=== PATIENT | female | born 1990 | race Caucasian/White ===

== ENCOUNTER 2016-06-20 12:21 | Inpatient (IN) | payer OTHER ==
[~2016-06-20] VITALS: Ht 170.2 cm; Wt 82.3 kg
[2016-06-20 12:45] VITALS: Ht 170.2 cm; Wt 82.3 kg
[2016-06-20 12:46] VITALS: BP 132/82; PULSE 93; RESP 18
[2016-06-20] MEDS ORDERED: PREN-99 PO (12:50)
[2016-06-20] MEDS ORDERED: METHYLERGONOVINE 0.2 MG INJ IM PRN (13:30)
[2016-06-20] MEDS ORDERED: IBUPROFEN 600 MG TAB PO PRN (13:30)
[2016-06-20] MEDS ORDERED: BUTORPHANOL 2 MG INJ IV PRN (13:30)
[2016-06-20] MEDS ORDERED: ACETAMINOPHEN/CODEINE #3 TAB PO PRN (13:30)
[2016-06-20] MEDS ORDERED: MISOPROSTOL 200 MCG TAB PR PRN (13:30)
[2016-06-20] MEDS ORDERED: OXYTOCIN 30 UNITS/LR 500 ML IV PRN (13:30)
[2016-06-20] MEDS ORDERED: LIDOCAINE 1% (MPF) 30 ML INJ INJ PRN (13:30)
[2016-06-20] MEDS ORDERED: CARBOPROST 250 MCG INJ IM PRN (13:30)
[2016-06-20] MEDS: LACTATED RINGER'S 1,000 ML IV SCH ×3 (14:49→23:43)
[2016-06-20 15:13] LABS: INR 0.91; PROTIME 12.2 Sec (12.2-14.2)
[2016-06-20 15:14] LABS: BASOPHIL # 0.1 10^3/ul (0.0-0.1); BASOPHILS % 0.5 % (0.0-2.0); EOSINOPHILS # 0.1 10^3/ul (0.0-0.5); EOSINOPHILS % 0.4 % (0.0-7.0); HEMATOCRIT 37.5 % (37.0-47.0); HEMOGLOBIN 12.3 g/dl (12.0-16.0); LYMPHOCYTES # 1.5 10^3/ul (0.8-2.9); LYMPHOCYTES % 11.7 % (15.0-51.0); MEAN CORPUSCULAR HEMOGLOBIN 27.6 pg (29.0-33.0); MEAN CORPUSCULAR HGB CONC 32.7 g/dl (32.0-37.0); MEAN CORPUSCULAR VOLUME 84.2 fl (82.0-101.0); MEAN PLATELET VOLUME 10.2 fl (7.4-10.4); MONOCYTE # 0.6 10^3/ul (0.3-0.9); MONOCYTES % 4.6 % (0.0-11.0); NEUTROPHIL # 10.3 10^3/ul (1.6-7.5); NEUTROPHILS % 82.8 % (39.0-77.0); PARTIAL THROMBOPLASTIN TIME 25.4 Sec (25.0-35.0); PLATELET COUNT 120 10^3/UL (140-440); RED BLOOD COUNT 4.46 10^6/ul (4.20-5.40); RED CELL DISTRIBUTION WIDTH 15.4 % (11.5-14.5); UNCORRECTED WBC 12.5 10^3/ul (4.8-10.8); WHITE BLOOD COUNT 12.5 10^3/ul (4.8-10.8)
[2016-06-20 15:17] LABS: CONDITION 1; LH ANALYZER COMMENTS 1
[2016-06-20] MEDS ORDERED: OXYTOCIN 30 UNITS/LR 500 ML IV SCH ×2 (15:30)
[2016-06-20] MEDS ORDERED: LACTATED RINGER'S 1,000 ML IV ONE (15:45)
[2016-06-20] MEDS ORDERED: ONDANSETRON 4 MG INJ ONE (15:53)
[2016-06-20] MEDS ORDERED: CITRIC ACID/NA CITRATE 30 ML CUP ONE (15:53)
[2016-06-20] MEDS ORDERED: FENTAnyl 2MCG/ML-ROPIV 0.2% 100 ML ONE (15:54)
[2016-06-20] MEDS ORDERED: NALOXONE (0.4 MG/ML) INJ IV PRN (16:00)
[2016-06-20] MEDS ORDERED: ONDANSETRON 4 MG INJ IV PRN (16:00)
[2016-06-20] MEDS ORDERED: CITRIC ACID/NA CITRATE 30 ML CUP PO ONE (16:00)
[2016-06-20] MEDS ORDERED: KETOROLAC 30 MG INJ IV PRN (16:00)
[2016-06-20] MEDS ORDERED: DIPHENHYDRAMINE 50 MG INJ IV PRN (16:00)
[2016-06-20] MEDS ORDERED: ONDANSETRON 4 MG INJ IV ONE (16:00)
[2016-06-20] MEDS ORDERED: PROCHLORPERAZINE 10 MG INJ IV PRN (16:00)
[2016-06-20] MEDS ORDERED: HYDROmorphONE 1 MG/ML SYG IV PRN ×2 (16:00)
[2016-06-20] MEDS: FENTAnyl 2MCG/ML-ROPIV 0.2% 100 ML BAG EPI SCH ×2 (16:20→23:43)
[2016-06-20] MEDS ORDERED: LACTATED RINGER'S 1,000 ML IV PRN (21:00)
[2016-06-21] MEDS ORDERED: ACETAMINOPHEN 325 MG TAB PO PRN ×2 (01:00→09:30)
[2016-06-21] MEDS: LACTATED RINGER'S 1,000 ML IV SCH ×2 (02:09→03:00)
--- NOTE | 2016-06-21 06:46 | LDN ---
Date/Time of Note Date/Time of Note DATE: 06/21/16 TIME: 06:44 Delivery Summary Terminal thick meconium noted. Cord around the body 1 and cord around the neck 1 release immediately after delivery. Nose and mouth was suctioned at the peritoneum. Placenta Delivered: Spontaneously Meconium: Thick (Terminal meconium) Perineum intact?: No Perineal laceration repair: First-degree labial and perineal laceration repaired using 3-0 chromic and Vicryl. Adequate hemostasis obtained Anesthesia type: Epidural Sponge & Needle done & correct: Yes All needle counts correct: Yes Any foreign bodies felt in the: No Problems: Infant Delivery Information Sex Infant Sex: female Apgars 1 Minute: 9 5 Minute: 9 Suctioning Nose & mouth suctioned at tabby: Yes Delee suction performed: Yes Umbilical Cord Umbilical cord with: 3 Vessels Cord presentations: nuchal cord Nuchal cord present X: 1 Cord Blood was obtained: Yes KARLA MORALES MD Jun 21, 2016 06:46
[2016-06-21 07:55] VITALS: BP 125/76; PULSE 93; RESP 20
[2016-06-21] MEDS ORDERED: IBUPROFEN 600 MG TAB PO ONE (09:00)
[2016-06-21] MEDS: OXYTOCIN 30 UNITS/LR 500 ML IV SCH ×2 (09:18→13:18)
[2016-06-21] MEDS ORDERED: ONDANSETRON 4 MG INJ IV PRN (09:30)
[2016-06-21] MEDS ORDERED: OXYCODONE/ASPIRIN (4.88/325) TAB PO PRN ×2 (09:30)
[2016-06-21] MEDS ORDERED: LANOLIN 7 GM TUBE TOP PRN (09:30)
[2016-06-21] MEDS ORDERED: DIBUCAINE 1% 30 GM OINT PR PRN (09:30)
[2016-06-21] MEDS: IBUPROFEN 600 MG TAB PO SCH ×3 (12:00→23:57)
[2016-06-21] MEDS: BENZOCAINE 20% 56 ML SPRAY TOP PRN (12:21)
[2016-06-21] MEDS: WITCH HAZEL/GLYCERIN PAD PR PRN (12:21)
[2016-06-21 12:27] VITALS: BP 121/82; PULSE 97; RESP 20
[2016-06-21] MEDS: ACETAMINOPHEN/CODEINE #3 TAB PO PRN ×2 (12:27→20:11)
[2016-06-21 13:57] LABS: ADD UMIC YES; URINE BILIRUBIN (Dip) NEGATIVE (NEGATIVE); URINE BLOOD (Dip) 3+ (NEGATIVE); URINE COLOR LT. YELLOW (YELLOW); URINE GLUCOSE (Dip) NEGATIVE (NEGATIVE); URINE KETONES (Dip) NEGATIVE (NEGATIVE); URINE LEUKOCYTE ESTERASE (Dip) NEGATIVE (NEGATIVE); URINE NITRITE (Dip) NEGATIVE (NEGATIVE); URINE TOTAL PROTEIN (Dip) NEGATIVE (NEGATIVE); URINE UROBILINOGEN (Dip) 0.2 E.U./dL (0.1-1.0)
[2016-06-21 16:00] VITALS: BP 109/54; PULSE 85; RESP 16
[2016-06-21 20:30] VITALS: BP 111/53; PULSE 105; RESP 18
[2016-06-21] MEDS: SENNA/DOCUSATE NA (8.6MG/50MG) TAB PO SCH (20:30)
[2016-06-22 00:50] VITALS: BP 117/69; PULSE 86; RESP 16
[2016-06-22] MEDS: ACETAMINOPHEN/CODEINE #3 TAB PO PRN ×2 (00:51→20:45)
[2016-06-22 03:43] VITALS: BP 108/59; PULSE 94; RESP 18
[2016-06-22] MEDS: IBUPROFEN 600 MG TAB PO SCH ×3 (05:51→18:20)
[2016-06-22 08:29] LABS: BASOPHILS % 0.4 % (0.0-2.0); EOSINOPHILS # 0.2 10^3/ul (0.0-0.5); EOSINOPHILS % 2.4 % (0.0-7.0); HEMATOCRIT 33.2 % (37.0-47.0); HEMOGLOBIN 10.8 g/dl (12.0-16.0); LYMPHOCYTES # 2.1 10^3/ul (0.8-2.9); LYMPHOCYTES % 21.8 % (15.0-51.0); MEAN CORPUSCULAR HEMOGLOBIN 27.7 pg (29.0-33.0); MEAN CORPUSCULAR HGB CONC 32.4 g/dl (32.0-37.0); MEAN CORPUSCULAR VOLUME 85.4 fl (82.0-101.0); MEAN PLATELET VOLUME 12.6 fl (7.4-10.4); MONOCYTE # 0.7 10^3/ul (0.3-0.9); MONOCYTES % 7.1 % (0.0-11.0); NEUTROPHIL # 6.7 10^3/ul (1.6-7.5); NEUTROPHILS % 68.3 % (39.0-77.0); PLATELET COUNT 116 10^3/UL (140-440); RED BLOOD COUNT 3.89 10^6/ul (4.20-5.40); RED CELL DISTRIBUTION WIDTH 16.1 % (11.5-14.5); UNCORRECTED WBC 9.8 10^3/ul (4.8-10.8); WHITE BLOOD COUNT 9.8 10^3/ul (4.8-10.8)
[2016-06-22 08:30] VITALS: BP 97/53; PULSE 93; RESP 18
[2016-06-22 08:31] LABS: CONDITION 1; LH ANALYZER COMMENTS 1
[2016-06-22] MEDS: SENNA/DOCUSATE NA (8.6MG/50MG) TAB PO SCH ×2 (09:00→20:45)
[2016-06-22] MEDS ORDERED: INFLUENZA VIRUS VACCINE 0.5 ML SYG IM* ONE (09:00)
--- NOTE | 2016-06-22 15:11 | PN ---
Date/Time of Note Date/Time of Note DATE: 06/22/16 TIME: 15:09 OB Subjective Subjective Subjective Afebrile vital sign stable complaining of coughing medications ordered abdomen soft uterus firm lochia normal extremity normal DEVIKA ROSEN MD Jun 22, 2016 15:11
[2016-06-22] MEDS ORDERED: GUAIFENESIN/DM 5ML CUP PO PRN (15:30)
[2016-06-22] MEDS ORDERED: NA PHOSPHATE/BIPHOS 133 ML ENEMA PR ONE (15:30)
[2016-06-22 16:00] VITALS: BP 113/72; PULSE 90; RESP 16
[2016-06-22 19:45] VITALS: BP 116/60; PULSE 92; RESP 17
[2016-06-23] MEDS: IBUPROFEN 600 MG TAB PO SCH ×3 (00:30→12:10)
[2016-06-23] MEDS: ACETAMINOPHEN/CODEINE #3 TAB PO PRN (01:38)
[2016-06-23 03:50] VITALS: BP 114/68; PULSE 97; RESP 18
[2016-06-23 08:00] VITALS: BP 102/58; PULSE 87; RESP 18
[2016-06-23] MEDS ORDERED: MEASLES,MUMPS,RUBELLA VACCINE INJ SC* ONE (09:00)
[2016-06-23] MEDS: SENNA/DOCUSATE NA (8.6MG/50MG) TAB PO SCH (10:03)
--- NOTE | 2016-06-23 13:01 | PD.PPDC ---
[employer] Discharge Instruction Condition Patient Condition: Good Diet Diet: Resume Regular Diet Activity/Restrictions Activity: Normal Activity May Shower Restrictions: No Exercising No Lifting No Driving No Sexual Activity Nothing in the Vagina No [place] No Tampons, douche Wound/Drain Care Instructions Wound/Drain Care Instructions: Wash with soap and water Keep clean and dry Follow-up Follow-up with Physician: 2, Week/Weeks Return to clinic for [employer] Instructions: Fever greater than 101 Worsening abdominal pain More than 2 pads per hour DEVIKA ROSEN MD Jun 23, 2016 13:01
--- NOTE | 2016-06-23 13:04 | DS ---
Date/Time of Note Date/Time of Note DATE: 06/23/16 TIME: 13:01 Obstetrical Discharge Record Final Diagnosis Final Diagnosis: Term delivered Vaginal Delivery Obstetrical Delivery: Spontaneous Condition on Discharge Physical Assessment Last Vitals: day 2 Vital sign stable abdomen soft uterus firm lochia normal extremity normal patient is complaining of cough RX Robitussin-DM, and for constipation Dulcolax tablet instructions given recommended appointment to the clinic in 2 weeks Voiding: Yes Bowel Movement: Yes Breast: Soft, non-tender, Filling Fundus: Firm Calf Tenderness: No Patient Condition: Good DEVIKA ROSEN MD Jun 23, 2016 13:04
[2016-06-23] MEDS: BENZOCAINE 20% 56 ML SPRAY TOP PRN (14:20)
[2016-06-23] MEDS: WITCH HAZEL/GLYCERIN PAD PR PRN (14:21)
== END 2016-06-23 17:11 | disposition home or self-care (01) | DRG 775 ==
LOC: OBT 12:21 → L-D 12:22 → OBT 14:11 → L-D 14:13 → PP1 06-21 07:56
PROVIDERS: ADMIT Obstetrics & Gynecology; ATTEND Obstetrics & Gynecology
PROC: 10E0XZZ Delivery of Products of Conception, External Approach (ICD-10-PCS; principal; 2016-06-21)
PROC: 0HQ9XZZ Repair Perineum Skin, External Approach (ICD-10-PCS; 2016-06-21)
DX: O69.81X0 Labor and delivery complicated by cord around neck, without compression, not applicable or unspecified (principal); O70.0 First degree perineal laceration during delivery; O71.89 Other specified obstetric trauma; Z3A.39 39 weeks gestation of pregnancy; Z37.0 Single live birth
CPT/HCPCS: 62319; 81001; 81003; 85025; 85610; 85730; 86592; 86900; 86901; 87086; 90686; G0463; J2405; J2590; J3010; J7120

== ENCOUNTER 2017-08-29 10:53 | Inpatient (IN) | END 2017-09-01 16:20 | disposition home or self-care (01) | DRG 766 ==